=== PATIENT | female | born 1985 | race Caucasian/White ===

== ENCOUNTER 2024-04-15 06:31 | Outpatient (CLI) | payer OTHER, SELFPAY ==
--- OUTSIDE RECORDS SUMMARY | 2024-04-15 06:35 | XMS_ITS | Encounter Summary ---
Author Organization [facility] Address [address] [place] [address] Care Team Providers Care Photonics Technician Name Role Phone Remedios Quinones MD, Faisal Primary Care Provider [phone] Reason for Referral * Imaging (Routine) - Closed Specialty Diagnoses / Procedures Referred By Libia gan Referred To Contact RADIOLOGY Diagnoses Epilepsy ([facility] HHS/HCC) Procedures MRI BRAIN WWO CON Artem Whittaker MD [facility] [address] [place] [address] Phone: tel: fax: Referral ID Status Reason Start Date Expiration Date Visits Re quested Visits Authorized [id number] Closed MRI 04/14/2024 04/14/2024 1 1 CTOR OF LEADERSHIP DEVELOPMENT Reason for Visit * Imaging (Routine) - Closed Specialty Diagnoses / Procedures Referred By Libia gan Referred To Contact RADIOLOGY Diagnoses Epilepsy ([facility] HHS/HCC) Procedures MRI BRAIN WWO CON Artem Whittaker MD [facility] [address] [place] [address] Phone: tel: fax: Referral ID Status Reason Start Date Expiration Date Visits Re quested Visits Authorized [id number] Closed MRI 04/14/2024 04/14/2024 1 1 Encounter Details Date Type Department Care Team (Late st Contact Info) Description 04/14/2024 2:17 PM DIRECTOR OF LEADERSHIP DEVELOPMENT Hospital Encounter [facility] [address] [place] [address] Artem Whittaker MD [address] [address] Arrived Social History Tobacco Use Types Packs/Day Years Used Date Smoking Tobacco: Never Assessed Comments Unknown Sex and Gender Information Value Date Recorded Sex Assigned at Female 04/14/2024 2:13 PM DIRECTOR OF LEADERSHIP DEVELOPMENT Legal Sex Female 9:01 AM DIRECTOR OF LEADERSHIP DEVELOPMENT Gender Identity Not on file Sexual Orientation Not on file documented as of this encounter Plan of Treatment Not on file documented as of this encounter Procedures Procedure Name Priority Date/Time Associated Diagnosis Comments MRI BRAIN WWO CON Routine 04/14/2024 3:3 7 PM DIRECTOR OF LEADERSHIP DEVELOPMENT Epilepsy ([facility]) documented in this encounter Results * MRI BRAIN WWO CON (04/14/2024 3:37 PM DIRECTOR OF LEADERSHIP DEVELOPMENT) Anatomical Region Laterality Modality Head Magnetic Resonan ce 04/14/2024 5:06 PM DIRECTOR OF LEADERSHIP DEVELOPMENT Impressions 04/14/2024 5:11 PM DIRECTOR OF LEADERSHIP DEVELOPMENT IMPRESSION: 1. No acute intracranial abnormality. 2. Few scattered subcortical white matter T2 FLAIR hyperintensities which are nonspecific and could be seen in the setting of migraine headaches, or possibly less likely sequela of prior infectious or inflammatory processes in the appropriate clinical setting. Referred By: ARTEM WHITTAKER V Interpreted By: Messi Lemons MD, 04/14/2024 5:06 PM Narrative 04/14/2024 5:11 PM DIRECTOR OF LEADERSHIP DEVELOPMENT [address] [place] [address] EXAMINATION: MRI BRAIN WWO CON, 04/14/2024 5:06 PM TECHNIQUE: Multiplanar multisequence magnetic resonance images of the brain were obtained before and after the administration of 17 mL of Dotarem injected through the right arm IV, without evidence of adverse reaction. HISTORY: Seizures COMPARISON: None available FINDINGS: There is no restricted diffusion to suggest an acute infarction. There is no hemorrhagic focus of susceptibility. Preserved barrios-white matter differentiation otherwise. Few scattered subcortical white matter T2 FLAIR hyperintensities are nonspecific. Hippocampal formations demonstrate normal volume, signal intensity and architecture. The sella, callosal, pineal, and craniovertebral junction regions appear within normal limits. No extra-axial collection. The ventricles are normal in size. The basal cisterns appear normal. The proximal intracranial arterial flow voids have a normal appearance. Orbital contents appear normal. Paranasal sinuses and mastoid air cells are well-aerated. Procedure Note Messi Lemons MD - 04/14/[address] [place] [address] EXAMINATION: MRI BRAIN WWO CON, 04/14/2024 5:06 PM TECHNIQUE: Multiplanar multisequence magnetic resonance images of thebrain were obtained before and after the administration of 17 mL ofDotarem injected through the right arm IV, without evidence of adversereaction. HISTORY: Seizures COMPARISON: None available FINDINGS: There is no restricted diffusion to suggest an acute infarction.There is no hemorrhagic focus of susceptibility. Preserved barrios-whitematter differentiation otherwise. Few scattered subcortical white matterT2 FLAIR hyperintensities are nonspecific. Hippocampal formationsdemonstrate normal volume, signal intensity and architecture. The sella,callosal, pineal, and craniovertebral junction regions appear withinnormal limits. No extra-axial collection. The ventricles are normal in size. The basalcisterns appear normal. The proximal intracranial arterial flow voidshave a normal appearance. Orbital contents appear normal. Paranasalsinuses and mastoid air cells are well-aerated. IMPRESSION: 1. No acute intracranial abnormality. 2. Few scattered subcortical white matter T2 FLAIR hyperintensities whichare nonspecific and could be seen in the setting of migraine headaches, orpossibly less likely sequela of prior infectious or inflammatory processesin the appropriate clinical setting. Referred By: ARTEM WHITTAKER V Interpreted By: Messi Lemons MD, 04/14/2024 5:06 PM us Artem Quinones MD MRI Final Result documented in this encounter Visit Diagnoses Diagnosis Epilepsy (CMS/HCC [facility]/HCC) Unspecified epilepsy without mention of intractable epilepsy documented in this encounter Administered Medications Inactive Administered Medications - up to 3 most recent administrations Medication Order MAR Action Action Date Dose Rate Site gadoterate meglumine (DOTAREM) 10 MMOL/20ML injection 17 mL 17 mL, Intravenous, IMG once as needed, Contrast, 1 dose, Starting on Felisha 04/14/24 at 1526, Until Felisha 04/14/24 at 1527 Given 04/14/2024 3:27 PM DIRECTOR OF LEADERSHIP DEVELOPMENT 17 mLs Right Arm documented in this encounter Care Teams Photonics Technician Relationship Specialty Start Date End Date Artem Whittaker MD [facility] [address] [place] [address] PCP - General INTERNAL MEDICINE 04/14/24 documented as of this encounter
--- OUTSIDE RECORDS SUMMARY | 2024-04-15 06:35 | XMS_ITS | Continuity of Care Document ---
Author Organization [facility] Address [address] [place] [address] Phone Care Team Providers Care Master Automotive Technician Name Role Phone Marco Vera MD Unavailable Unavailable Allergies, Adverse Reactions, Alerts Substance Reaction Status Criticality Penicillins Unknown Active No Information POTASSIUM CLAVULANATE Unknown Active No Inf ormation AMOXICILLIN TRIHYDRATE Unknown Active No In formation Medications Medication Instructions Dosage Effective Dates (start - stop) Status Comments IBUPROFEN (unknown strength) Not Available - Active CITALOPRAM HBR (unknown strength) Not Available - Active Ultram 50 mg tablet take 1 tablet (50MG) by oral route every 4-6 hours as needed - No Longer Active Procedures Procedure Date XRAY HAND, 1-2 VIEWS APPLICATION SHORT ARM CAST APPLICATION SHORT ARM CAST CAST SUPPLIES SHORT ARM ADULT FIBERGLASS 11+ YEARS XRAY HAND, 1-2 VIEWS POSTOP FOLLOW-UP VISIT XRAY HAND, 1-2 VIEWS APPLICATION SHORT ARM CAST Metacarpal Fx, ClTx W/o Manipulation Eac h Bone Metacarpal Fx, ClTx W/o Manipulation Eac h Bone XRAY HAND, 1-2 VIEWS CAST SUPPLIES SHORT ARM ADULT FIBERGLASS 11+ YEARS Advance Directives Directive Yes / No Effective Date File Name No Information Encounters Encounter Description Practice Location Reason(s) For Visit Diagnoses Date Provider Providers Copied on Encounter [facility], [address] [facility], [place], [address], tel:[phone] [facility] right hand pain (chief complaint) Closed fracture of metacarpal bone(s), site unspecified Jody Lara. [address], [place], [id number], [place]. tel:[phone] [facility], [address] [place], [address], [place] tel:[phone] [facility] right hand pain (chief complaint) Closed fracture of shaft of metacarpal bone(s) Jody Lara. [address], [place], [id number], [place]. tel:[phone] Family History Family Member Type Diagnosis Age At Onset Problem (finding) Family history of Diabe mariana mellitus Payers Payer name Insurance type Covered alliance party [place] Authorvika c[place] [facility] [id number] Social History Type Description Quantity Date Captured Comments Alcohol Use Details Unknown Caffeine Use Details Unknown Tobacco Use Status Smoking Status Current some day smoker Smoking Tobacco Use Details Cigarette: No Details Available Cigarette: No Details Available Sex Female Vital Signs Date / Time: Height Weight BMI Pulse Rate Blood Pressure Temperature Respiratory Rate Body Surface Area Head Circumference Head Circ. Percentile Wt./Benny. Percentile BMI percentile Pulse Ox Inhaled Ox 9:06 AM 65.00 in 97.069 kg (214.00 lbs) 35.6 1 kg/m eter (2) Chief Complaint And Reason For Visit From encounter dated '07/12/2013 08:40'. right hand pain (chief complaint). Description: Ms LORENZO is a 28 year old female who complains of right hand pain. She presents with pain on the right side. Reason For Referral Reason For Referral No Information Plan Of Treatment Date Type Action Status Future Order: Radiology Order Ng nd X-ray; Limited (2 views) ([id number]), Sent on: Sent Future Order: Radiology Order Ng nd X-ray; Limited (2 views) ([id number]), Sent on: Sent History Of Present Illness Encounter Date Complaint History Of Prese nt Illness right hand pain Ms LORENZO is a 28 year old female who complains of right hand pain. She presents with pain on the right side. right hand pain She presents wit h pain on the right side. Functional Status Date Functional Assessmen t No Information Instructions Date Instruction Additional Infor mation elevate limb above heart Assessments Type Assessment Date assessment Closed fracture of metacarpal paula ne(s), site unspecified Patient Care Teams Name Effective Dates (start - stop) Status Members No Information
--- OUTSIDE RECORDS SUMMARY | 2024-04-15 06:35 | XMS_ITS | Clinical Summary ---
Author Organization [facility] Address [facility] [place] [address] Care Team Providers Care Carousel Operator Name Role Phone Remedios Quinones MD, Faisal Primary Care Provider [phone] Encounters Date Type Department Care Team Description 04/14/2024 2:17 PM SIDING COREBOARD INSPECTOR Hospital Encounter [facility] [address] [place] [address] Artem Whittaker MD Arrived 04/14/2024 Travel from Last 3 Months Social History Tobacco Use Types Packs/Day Years Used Date Smoking Tobacco: Never Assessed Comments Unknown Sex and Gender Information Value Date Recorded Sex Assigned at Female 04/14/2024 2:13 PM SIDING COREBOARD INSPECTOR Legal Sex Female 9:01 AM SIDING COREBOARD INSPECTOR Gender Identity Not on file Sexual Orientation Not on file Plan of Treatment Health Maintenance Due Date Last Done Comments Cervical Cancer Screening Pa p Smear (Age 30 to 64) Every 3 Years 1985 Annual Physical 1988 Hepatitis C 07/08/2003 DTaP, Tdap and Td Vaccines ( 1 - Tdap) 2004 Hepatitis B Vaccines (1 of 3 - 19+ 3-dose series) 2004 Cervical Cancer Screening Pa p with HPV Testing (Age 30 to 64) Every 5 Years 07/08/2015 Cervical Cancer Screening with HPV 07/08/2015 COVID-19 Vaccine (2023-2 5 season) 2023 Influenza Adult (#1) 2023 HPV Vaccines Aged Out No longer eligi ble based on patient's age to complete this topic Meningococcal B Vaccine Aged Out No l onger eligible based on patient's age to complete this topic Meningococcal Vaccine Aged Out No michael toma eligible based on patient's age to complete this topic Pneumococcal Vaccine: Pediat rics (0 to 5 Years) and At-Risk Patients (6 to 64 Years) Aged Out No longer eligible b ased on patient's age to complete this topic RSV Immunizations Under 20 Months Aged Out No longer eligible based on patient's age to complete this topic Procedures Procedure Name Priority Date/Time Associated Diagnosis Comments MRI BRAIN WWO CON Routine 04/14/2024 3:3 7 PM SIDING COREBOARD INSPECTOR Epilepsy ([facility]/HCC [facility]) from Last 3 Months Results * MRI BRAIN WWO CON (04/14/2024 3:37 PM SIDING COREBOARD INSPECTOR) Anatomical Region Laterality Modality Head Magnetic Resonan ce 04/14/2024 5:06 PM SIDING COREBOARD INSPECTOR Impressions 04/14/2024 5:11 PM SIDING COREBOARD INSPECTOR IMPRESSION: 1. No acute intracranial abnormality. 2. Few scattered subcortical white matter T2 FLAIR hyperintensities which are nonspecific and could be seen in the setting of migraine headaches, or possibly less likely sequela of prior infectious or inflammatory processes in the appropriate clinical setting. Referred By: ARTEM WHITTAKER V Interpreted By: Messi Lemons MD, 04/14/2024 5:06 PM Narrative 04/14/2024 5:11 PM SIDING COREBOARD INSPECTOR [address] [place] [address] EXAMINATION: MRI BRAIN [facility], 04/14/2024 5:06 PM TECHNIQUE: Multiplanar multisequence magnetic [...] Procedure Note Messi Lemons MD - 04/14/[address] [place] [address] EXAMINATION: MRI BRAIN [place], 04/14/2024 5:06 PM TECHNIQUE: Multiplanar multisequence magnetic [...] By: Messi Lemons MD, 04/14/2024 5:06 PM Artem Quinones MD MRI Final Result from Last [address] [place], [place] [address]CARE Care Teams Carousel Operator Relationship Specialty Start Date End Date Artem Whittaker MD [facility] [address] [place] [phone] PCP - General INTERNAL MEDICINE 04/14/24
--- OUTSIDE RECORDS SUMMARY | 2024-04-15 06:35 | XMS_ITS | Encounter Summary ---
Author Organization [facility] Address [facility] [place] [address] Care Team Providers Care Firer Electric Locomotive Name Role Phone Remedios Quinones MD, Artem Primary Care Provider Encounter Details Date Type Department Care Team (Latest Contact Info) Description 04/14/2024 Travel Social History Tobacco Use Types Packs/Day Years Used Date Smoking Tobacco: Never Assessed Comments Unknown Sex and Gender Information Value Date Recorded Sex Assigned at Female 04/14/2024 2:13 PM HYDRAULIC PILE HAMMER OPERATOR Legal Sex Female 9:01 AM HYDRAULIC PILE HAMMER OPERATOR Gender Identity Not on file Sexual Orientation Not on file documented as of this encounter Plan of Treatment Not on file documented as of this encounter Visit Diagnoses Not on filedocumented in this encounter Care Teams Firer Electric Locomotive Relationship Specialty Start Date End Date Artem Whittaker MD [facility] [address] [place] [address] PCP - General INTERNAL MEDICINE 04/14/24 documented as of this encounter
--- NOTE | 2024-04-19 10:42 | P.NEURO_ITS ---
Neurology EEG Report General Information Date of Study: 04/15/24 TEST Eeg DIAGNOSIS seizure disorder CONDITION OF RECORDING awake, drowsy and asleep. EEG NUMBER [id number] CLINICAL HISTORY Patient reports about 13 years ago she had a surgery and while under anesthesia she had 1st seizure since then seem to have 1 whenever she is under stress or overheated. EEG DESCRIPTION Basic resting occipital frequency consists of well-organized low to medium voltage 8 to 10 hertz per 2nd alpha admixed with low-voltage 15 to 18 hertz per 2nd beta activity. Alpha activity is symmetrical the block with eyes opening. Good yulia posterior gradient is noted. Hyperventilation produced normal and symmetrical buildup. Low-voltage beta activity seen during drowsiness with waxing and waning alpha activity posteriorly. Bilateral symmetrical sleep act ivity is noted with symmetrical sleep spindles evolving into deeper stage of sleep and K complexes as well. Photic stimulation produced normal drive. Non paroxysmal. Nonfocal. Nonlateralizing. IMPRESSION Normal record during wakefulness, drowsiness, and sleep, clinical correlation recommended. Eeg can be normal even if the patient has seizure disorder.
== END 2024-04-15 06:32 | disposition home or self-care (01) ==
LOC: ANHNEURO 06:33
PROVIDERS: Visit Provider Physician Assistant
DX: G40.909 Epilepsy, unspecified, not intractable, without status epilepticus (principal)
CPT/HCPCS: 95819